=== PATIENT | male | born 1995 | race Two or more races ===

== ENCOUNTER 2020-03-26 10:26 | Emergency (ER) | payer OTHER, MEDICAID ==
[~2020-03-26] VITALS: Ht 180.3 cm; Wt 77.1 kg
[2020-03-26 10:31] VITALS: BP 112/58
[2020-03-26] MEDS ORDERED: DEPAKOTE ER250 MG ORAL (10:41)
[2020-03-26] MEDS ORDERED: QUETIAPINE FUMA25 MG ORAL (10:41)
--- NOTE | 2020-03-26 10:42 | Emergency Room Report ---
History of Present Illness General Chief Complaint: Behavioral Complaint Source: Patient, EMS Present Illness HPI Disclaimer: Please note that this report is being documented using DRAGON technology. This can lead to erroneous entry secondary to incorrect interpretation by the dictating instrument. HPI: 24-year-old male with history of bipolar disorder and substance abuse presents for evaluation of nonspecific chest pain. The patient states he was using methamphetamines last night is also taking Depakote and Seroquel. He reported some left-sided chest pain that is now resolved. Currently no pain. He is resting comfortably and requesting something to eat and drink. Patient is not providing any significant detail as to why he is in the hospital today. He just wants a place to sleep currently. Denies SI/HI. Admits to smoking cigarettes. Denies alcohol use. PMH: Bipolar disorder, ADHD PSH: Reviewed Allergies: Denies Social Hx: Tobacco use, methamphetamine use, Allergies: Coded Allergies: No Known Allergies (Unverified , 03/26/20) COVID-19 Screening Contact w/high risk pt: No Recent Travel to affected area: No Experienced COVID-19 symptoms?: No COVID-19 Testing performed LOCKST[employer]TER: No Review of Systems All Other Systems: negative except mentioned in HPI Physical Exam Vital Signs Date Time Temp Pulse Resp B/P (MAP) Pulse Ox O2 Delivery O2 Flow Rate FiO2 03/26/20 10:27 98.1 128 16 112/58 (76) 98 Room Air General: Awake and alert, no acute distress HEENT: NC/AT. EOMI. Resp: Normal work of breathing. Skin: Intact. No abrasions, laceration or rash over the exposed skin MSK: Normal tone and bulk. Moving all extremities. No obvious deformity. Neuro: Awake and alert. Mentating appropriately. Medical Decision Making Diagnostic Impression: Primary Impression: Eloped from emergency department ER Course This is a 24-year-old male presenting to the emergency department for evaluation of chest pain that had resolved in the setting of recent substance abuse. Patient stated he had no pain on arrival. He did not allow me to examine him stating that labs and x-ray would be enough. Ordered broad labs including cardiac enzymes, EKG and chest x-ray however I was alerted by nurse that when she went into room to obtain the blood sample as he was refusing all interventions. I went to go speak to the patient but by the time I entered the room he had already packed his bags and walked out of the emergency department. He was ambulating with a steady gait and did not appear to be in any distress. Last Vital Signs Date Time Temp Pulse Resp B/P (MAP) Pulse Ox O2 Delivery O2 Flow Rate FiO2 03/26/20 10:31 128 16 Room Air 03/26/20 10:31 98.1 112/58 98 Disposition: ELOPED Condition: Stable Coy Beltran MD March 26, 2020 10:42
== END 2020-03-26 11:10 | disposition left against medical advice (07) ==
LOC: EDBD 10:26 → EMR 10:36
DX: R07.9 Chest pain, unspecified (principal); F31.9 Bipolar disorder, unspecified; F17.210 Nicotine dependence, cigarettes, uncomplicated
CPT/HCPCS: 99281